=== PATIENT | female | born 1930 | race Caucasian/White ===

== ENCOUNTER 2016-11-13 20:37 | Inpatient (IN) | payer MEDICARE ==
[2016-11-13] MEDS ORDERED: SODIUM CHLORIDE 0.9% 500 ML IV STA (21:11)
--- NOTE | 2016-11-13 21:28 | ED ---
Skin/Abscess/FB HPI - General Source: patient, RN notes reviewed Mode of arrival: wheelchair Limitations: no limitations <Christine Mario - Last Filed: 11/13/16 22:30> <Walter Dos Santos - Last Filed: 11/13/16 23:11> - General Chief complaint: Skin/Abscess/Foreign Body Stated complaint: foot infection Time Seen by Provider: 11/13/16 21:00 - History of Present Illness Initial comments: 86 yo female presents to the ER with cc of left foot redness. Patient states that this redness started about a week ago. Patient states that [facility] of gout which was negative. Patient states that she was on Bactrim at that time. Patient states the redness has stayed about the same she went for a repeat exam today and she saw Dr. Albarran. They switch her to Keflex. They state they kourtney up lying on the area of redness and they stated that if the redness got past the line to come to the emergency department. They state that they noticed that it was getting more red close to the line without that they should be seen. There is been no fever chills no nausea or vomiting. Patient denies any significant health history besides high blood pressure. They stated they were concerned due to the redness without that they should be evaluated. Patient denies any recent fever, chills, shortness of breath, chest pain, back pain, abdominal pain, nausea vomiting, numbness or tingling, dysuria or hematuria, constipation or diarrhea, headaches or visual changes, or any other current symptoms. (Christine Mraio) - Related Data Home Medications Medication Instructions Recorded Confirmed Hydrochlorothiazide [Hydrodiuril] 25 mg PO DAILY 02/29/16 02/29/16 Hydrocodone/Acetaminophen [[place]igeon 1 tab PO Q4HR PRN 02/29/16 02/29/16 5-325] Metoprolol Tartrate [Lopressor] 50 mg PO BID 02/29/16 02/29/16 amLODIPine BESYLATE/BENAZEPRIL 1 cap PO DAILY 02/29/16 02/29/16 [Lotrel 5-20 mg Capsule] Allergies Allergy/AdvReac Type Severity Reaction Status Date / Time clindamycin Allergy Diarrhea Verified 11/13/16 21:00 codeine AdvReac Unknown Verified 11/13/16 21:00 Penicillins AdvReac Unknown Verified 11/13/16 21:00 Review of Systems ROS Other: All systems not noted in ROS Statement are negative. <Christine Mario - Last Filed: 11/13/16 22:30> ROS Other: All systems not noted in ROS Statement are negative. <Walter Dos Santos - Last Filed: 11/13/16 23:11> ROS Statement: Those systems with pertinent positive or pertinent negative responses have been documented in the HPI. Past Medical History Past Medical History: Hypertension History of Any Multi-Drug Resistant Organisms: None Reported Past Surgical History: Appendectomy, Hysterectomy Past Psychological History: No Psychological Hx Reported Smoking Status: Never smoker Past Alcohol Use History: None Reported Past Drug Use History: None Reported <Christine Mario - Last Filed: 11/13/16 22:30> General Exam Limitations: no limitations <Christine Mario - Last Filed: 11/13/16 22:30> General appearance: alert, in no apparent distress Head exam: Present: atraumatic, normocephalic, normal inspection Eye exam: Present: normal appearance, PERRL, EOMI. Absent: scleral icterus, conjunctival injection, periorbital swelling ENT exam: Present: normal exam, mucous membranes moist Neck exam: Present: normal inspection. Absent: tenderness, meningismus, lymphadenopathy Respiratory exam: Present: normal lung sounds bilaterally. Absent: respiratory distress, wheezes, rales, rhonchi, stridor Cardiovascular Exam: Present: regular rate, normal rhythm, normal heart sounds. Absent: systolic murmur, diastolic murmur, rubs, gallop, clicks GI/Abdominal exam: Present: soft, normal bowel sounds. Absent: distended, tenderness, guarding, rebound, rigid Extremities exam: Present: normal inspection, full ROM, normal capillary refill. Absent: tenderness, pedal edema, joint swelling, calf tenderness Back exam: Present: normal inspection Neurological exam: Present: alert, oriented X3, CN II-XII intact Psychiatric exam: Present: normal affect, normal mood Skin exam: Present: warm, dry, intact, normal color. Absent: rash <Walter Dos Santos - Last Filed: 11/13/16 23:11> - General Exam Comments Initial Comments: General: The patient is awake and alert, in no distress, and does not appear acutely ill. Neck: The neck is supple, there is no tenderness. Cardiovascular: There is a regular rate and rhythm. No murmur, rub or gallop is appreciated. Respiratory: Lungs are clear to auscultation, respirations are non-labored, breath sounds are equal. No wheezes, stridor, rales, or rhonchi. Musculoskeletal: Sensation to have a 2+ pulses at the left foot x-ray. Findings motion of left knee left ankle and left foot. It is piercing the erythema with induration to the distal aspect of the left foot to about mid foot. It is. A PA penlight patient has no erythematous passing the midline. There is no streaking. There is no fluctuant area. Neurological: CN II-XII intact, There are no obvious motor or sensory deficits. Coordination appears grossly intact. Speech is normal. Skin: Skin is warm and dry and no rashes or lesions are noted. Psychiatric: Normal mood and affect. (Christine Mario) Medical Decision Making - Lab Data Result diagrams: 11/13/16 21:25 11/13/16 21:25 - Radiology Data Radiology results: report reviewed, image reviewed <Christine Mario - Last Filed: 11/13/16 22:30> - Lab Data Result diagrams: 11/13/16 21:25 11/13/16 21:25 <Walter Dos Santos - Last Filed: 11/13/16 23:11> - Medical Decision Making 86-year-old female presents to the emergency room chief complaint of what appears to be cellulitis to the left forefoot. Patient has been on Bactrim since Wednesday and was switched to Keflex starting today. Patient states that she now some increasing redness that does have underlying. Patient underwent laboratory showed no white blood cell count however she does appear to have no a creatinine of 1.6 which could be related to the Bactrim but other causes as well. Patient denies any history of abnormal kidney function in the past. Patient states that she called Ortho and the informed to come here for IV antibiotics and possible ID consult. This time the case was discussed with Dr. Lomeli who does admit to the admission. We will consult Dr. Smith who is on- call for [facility] at this time. We will hold consult request to [facility]. Family in agreement with plan. (Christine Mario) A 86 female here for evaluation of lower extremity cellulitis seen by orthoepist and progressing proximally disoriented back therapy, patient will be admitted for IV antibiotic treatment and reevaluation by orthopedics (Walter Dos Santos) - Lab Data Lab Results 11/13/16 11/13/16 11/13/16 Range/Units 21:25 21:25 21:25 WBC 8.2 (3.8-10.6) k/uL RBC 4.23 (3.80-5.40) m/uL Hgb 12.5 (11.4-16.0) gm/dL Hct 38.5 (34.0-46.0) % MCV 90.9 (80.0-100.0) fL MCH 29.5 (25.0-35.0) pg MCHC 32.4 (31.0-37.0) g/dL RDW 12.6 (11.5-15.5) % Plt Count 289 (150-450) k/uL Neutrophils % 74 % Lymphocytes % 14 % Monocytes % 8 % Eosinophils % 1 % Basophils % 0 % Neutrophils # 6.1 (1.3-7.7) k/uL Lymphocytes # 1.1 (1.0-4.8) k/uL Monocytes # 0.7 (0-1.0) k/uL Eosinophils # 0.1 (0-0.7) k/uL Basophils # 0.0 (0-0.2) k/uL ESR (0-20) mm/hr Sodium 132 L (137-145) mmol/L Potassium 3.6 (3.5-5.1) mmol/L Chloride 94 L (98-107) mmol/L Carbon Dioxide 22 (22-30) mmol/L Anion Gap 16 mmol/L BUN 26 H (7-17) mg/dL Creatinine 1.62 H (0.52-1.04) mg/dL Est GFR (MDRD) Af Amer 37 (>60 ml/min/1.73 sqM) Est GFR (MDRD) Non-Af 30 (>60 ml/min/1.73 sqM) Glucose 106 H (74-99) mg/dL Calcium 10.0 (8.4-10.2) mg/dL Total Bilirubin 0.6 (0.2-1.3) mg/dL AST 24 (14-36) U/L ALT 21 (9-52) U/L Alkaline Phosphatase 75 (38-126) U/L C-Reactive Protein 33.6 H (<10.0) mg/L Total Protein 7.9 (6.3-8.2) g/dL Albumin 4.5 (3.5-5.0) g/dL 11/13/16 Range/Units 21:25 WBC (3.8-10.6) k/uL RBC (3.80-5.40) m/uL Hgb (11.4-16.0) gm/dL Hct (34.0-46.0) % MCV (80.0-100.0) fL MCH (25.0-35.0) pg MCHC (31.0-37.0) g/dL RDW (11.5-15.5) % Plt Count (150-450) k/uL Neutrophils % % Lymphocytes % % Monocytes % % Eosinophils % % Basophils % % Neutrophils # (1.3-7.7) k/uL Lymphocytes # (1.0-4.8) k/uL Monocytes # (0-1.0) k/uL Eosinophils # (0-0.7) k/uL Basophils # (0-0.2) k/uL ESR 41 H (0-20) mm/hr Sodium (137-145) mmol/L Potassium (3.5-5.1) mmol/L Chloride (98-107) mmol/L Carbon Dioxide (22-30) mmol/L Anion Gap mmol/L BUN (7-17) mg/dL Creatinine (0.52-1.04) mg/dL Est GFR (MDRD) Af Amer (>60 ml/min/1.73 sqM) Est GFR (MDRD) Non-Af (>60 ml/min/1.73 sqM) Glucose (74-99) mg/dL Calcium (8.4-10.2) mg/dL Total Bilirubin (0.2-1.3) mg/dL AST (14-36) U/L ALT (9-52) U/L Alkaline Phosphatase (38-126) U/L C-Reactive Protein (<10.0) mg/L Total Protein (6.3-8.2) g/dL Albumin (3.5-5.0) g/dL Disposition Time of Disposition: 22:31 Decision Date: 11/13/16 Decision Time: 22:32 <Christine Mario - Last Filed: 11/13/16 22:30> <Walter Dos Santos - Last Filed: 11/13/16 23:11> Clinical Impression: BENJAMIN (acute kidney injury), Cellulitis of left foot, Failure of outpatient treatment Disposition: ADMITTED IP TO THIS [facility] Condition: Stable Referrals: Maco El MD [Primary Care Provider] - 1-2 days
--- NOTE | 2016-11-13 21:44 | XR ---
EXAMINATION TYPE: XR foot complete LT DATE OF EXAM: 11/13/2016 9:39 PM COMPARISON: NONE HISTORY: Foot pain and swelling TECHNIQUE: 3 views FINDINGS: There is mild hallux valgus. There is mild soft tissue swelling around the first MP joint. I see no fracture nor dislocation. Metatarsals appear intact. There are no erosions. CONCLUSION: Mild hallux valgus. Mild soft tissue swelling. No fracture seen.
[2016-11-13 21:46] LABS: Basophils % (A) 0 %; CH 30.8; Eosinophils # (A) 0.1 k/uL (0-0.7); Eosinophils % (A) 1 %; HCT 38.5 % (34.0-46.0); HDW 2.13; HGB 12.5 gm/dL (11.4-16.0); Luc # (Auto) 0.23; Luc % (Auto) 3; Lymphocytes # (A) 1.1 k/uL (1.0-4.8); Lymphocytes % (A) 14 %; MCH 29.5 pg (25.0-35.0); MCHC 32.4 g/dL (31.0-37.0); MCV 90.9 fL (80.0-100.0); Mean Platelet Volume 7.2; Monocytes # (A) 0.7 k/uL (0-1.0); Monocytes % (A) 8 %; Neutrophils # (A) 6.1 k/uL (1.3-7.7); Neutrophils % (A) 74 %; RBC 4.23 m/uL (3.80-5.40); RDW 12.6 % (11.5-15.5); WBC 8.2 k/uL (3.8-10.6); WBC (Perox) 8.53
[2016-11-13 22:01] LABS: Potassium 3.6 mmol/L (3.5-5.1); Total Bilirubin 0.6 mg/dL (0.2-1.3); Total Protein 7.9 g/dL (6.3-8.2)
[2016-11-13] MEDS ORDERED: ONDANSETRON 4 MG/2 ML VIAL IVP PRN (22:32)
[2016-11-13] MEDS ORDERED: NALOXONE 0.4 MG/ML 1 ML VIAL IV PRN (22:32)
[2016-11-13] MEDS ORDERED: IV VANCOMYCIN PER PHARMACY 1 EACH MISC MISCELLANE PRN (22:36)
[2016-11-13] MEDS ORDERED: VANCOMYCIN 1,000 MG in SODIUM CHLORIDE 0.9% 250 ML IVPB STA (22:41)
[2016-11-13] MEDS ORDERED: LORazepam 2 MG/ML SYRINGE IV STA (23:44)
[2016-11-14] MEDS: SODIUM CHLORIDE 0.9% 1,000 ML IV SCH ×3 (00:01→12:53)
[2016-11-14 00:45] VITALS: BMI 26.4
[2016-11-14 08:00] LABS: Basophils % (A) 0 %; CH 30.5; Eosinophils # (A) 0.1 k/uL (0-0.7); Eosinophils % (A) 2 %; HCT 34.5 % (34.0-46.0); HDW 2.13; HGB 11.2 gm/dL (11.4-16.0); Luc # (Auto) 0.18; Luc % (Auto) 3; Lymphocytes # (A) 0.9 k/uL (1.0-4.8); Lymphocytes % (A) 14 %; MCHC 32.3 g/dL (31.0-37.0); MCV 92.9 fL (80.0-100.0); Mean Platelet Volume 7.4; Monocytes # (A) 0.4 k/uL (0-1.0); Monocytes % (A) 7 %; Neutrophils # (A) 4.6 k/uL (1.3-7.7); Neutrophils % (A) 74 %; RBC 3.71 m/uL (3.80-5.40); RDW 12.9 % (11.5-15.5); WBC 6.2 k/uL (3.8-10.6); WBC (Perox) 6.57
[2016-11-14 08:16] LABS: Calcium 9.2 mg/dL (8.4-10.2); Potassium 3.7 mmol/L (3.5-5.1); Total Bilirubin 0.6 mg/dL (0.2-1.3); Total Protein 6.7 g/dL (6.3-8.2)
[2016-11-14] MEDS: HYDROcodone/APAP 5-325MG 1 EACH TAB PO PRN (08:38)
--- NOTE | 2016-11-14 09:08 | P.CNOR ---
History of Present Illness - [facility] Consult date: 11/14/16 Requesting physician: Sam Albarran Consult reason: joint pain History of present illness: Patient is pleasant 86-year-old female seen at bedside this morning. She is admitted last evening to the ER for continued pain, swelling or redness of the left foot and toes. She had seen Dr. Albarran in the office earlier that day and had been on oral antibiotics. She did not shown improvement and thus was advised to present to the emergency department. She was admitted last evening and started on IV antibiotics, vancomycin, which she has tolerated well. She feels her pain and symptoms are improved today. She has no new complaints. She is denying fever, chills, calf pain, numbness, tingling, chest pain, cough or other Review of Systems All systems: negative Constitutional: Denies chills, Denies fever Eyes: denies blurred vision, denies pain Ears, nose, mouth and throat: Denies headache, Denies sore throat Cardiovascular: Denies chest pain, Denies shortness of breath Respiratory: Denies cough Gastrointestinal: Denies abdominal pain, Denies diarrhea, Denies nausea, Denies vomiting Genitourinary: Denies dysuria, Denies hematuria Musculoskeletal: Denies myalgias Integumentary: Denies pruritus, Denies rash Neurological: Denies numbness, Denies weakness Psychiatric: Denies anxiety, Denies depression Endocrine: Denies fatigue, Denies weight change Past Medical History Past Medical History: Fibromyalgia, Hypertension Additional Past Medical History / Comment(s): Aortic Aneurysm, Macular degeneration History of Any Multi-Drug Resistant Organisms: None Reported Past Surgical History: Appendectomy, Hysterectomy Past Anesthesia/Blood Transfusion Reactions: No Reported Reaction Past Psychological History: No Psychological Hx Reported Smoking Status: Never smoker Past Alcohol Use History: None Reported Past Drug Use History: None Reported - Past Family History Mother Additional Family Medical History / Comment(s): bowel obstruction Medications and Allergies Home Medications Medication Instructions Recorded Confirmed Type Hydrochlorothiazide [Hydrodiuril] 25 mg PO DAILY 02/29/16 11/14/16 History Hydrocodone/Acetaminophen [[place]eler 1 tab PO Q4HR PRN 02/29/16 11/14/16 History 5-325] Metoprolol Tartrate [Lopressor] 50 mg PO BID 02/29/16 11/14/16 History amLODIPine BESYLATE/BENAZEPRIL 1 cap PO DAILY 02/29/16 11/14/16 History [Lotrel 5-20 mg Capsule] Allergies Allergy/AdvReac Type Severity Reaction Status Date / Time clindamycin Allergy Diarrhea Verified 11/13/16 21:00 codeine AdvReac Unknown Verified 11/13/16 21:00 Penicillins AdvReac Unknown Verified 11/13/16 21:00 Physical Examination Inspection of the left foot reveals resolving erythema distally along the greater toe and second through fifth digits. There is demarcation with a marking pen where the erythema has receded from. The foot and toes are mildly warm to touch. She has painless active range of motion including dorsiflexion and plantarflexion of the foot and toes. Endpoint range of motion is limited due to pain particularly along the greater toe. There is no fluid collection, abscess or fluctuance. Sensation light touch is intact throughout the left lower extremity, foot and toes. 2+ dorsalis pedis pulses present and less than 2 second cap refill is present. Calf is soft and nontender. Results - Labs Labs: Abnormal Lab Results - Last 24 Hours (Table) 11/14/16 11/14/16 Range/Units 07:38 07:38 RBC 3.71 L (3.80-5.40) m/uL Hgb 11.2 L (11.4-16.0) gm/dL Lymphocytes # 0.9 L (1.0-4.8) k/uL BUN 18 H (7-17) mg/dL Creatinine 1.11 H (0.52-1.04) mg/dL H & H 11/14/16 Range/Units 07:38 Hgb 11.2 L (11.4-16.0) gm/dL Hct 34.5 (34.0-46.0) % Result Diagrams: 11/14/16 07:38 11/14/16 07:38 Assessment and Plan (1) Cellulitis of left foot Narrative/Plan: She will continue with routine orthopedic protocol including pain management, wound care, DVT prophylaxis and antibiotics per internal medicine which she is currently on IV vancomycin. Suspect the differential includes cellulitis versus acute gouty attack. She has a normal white count and is afebrile. She had an aspiration which results were apparently negative for infectious intra- articular process. Continue elevation and monitoring. We'll follow and make further recommendations as appropriate Status: Acute Time with Patient: Less than 30
[2016-11-14] MEDS ORDERED: AMLODIPINE BESYLATE PO SCH (12:00)
[2016-11-14] MEDS ORDERED: BENAZEPRIL PO SCH (12:00)
--- NOTE | 2016-11-14 12:04 | P.HPIM ---
History of Present Illness H&P Date: 11/14/16 Chief Complaint: Cellulitis left foot This is an 86-year-old female patient of Dr. Maco El with past medical history of hypertension, aortic aneurysm which is being monitored, diverticulosis, fibromyalgia, osteoporosis. Patient developed redness to the left foot with no known injury and follow-up with Dr. Albarran. She states she was originally placed on Bactrim which causes diarrhea and yesterday she was changed to Keflex but she continued to have pain to the foot as well as swelling and redness and Dr. [facility]ran [facility] and [facility] emergency center for evaluation. She was given a dose of ceftriaxone and vancomycin and admitted to the [facility] floor. She did have significant improvement of the redness and swelling after IV antibiotics. Patient's niece is at the bedside. Patient was also noted to have acute kidney injury. Patient also gives a history of a foaming sensation and feeling like things are stuck in her esophagus. Review of Systems All systems: negative Constitutional: Denies chills, Denies fever Eyes: denies blurred vision, denies pain Ears, nose, mouth and throat: Denies headache, Denies sore throat Cardiovascular: Denies chest pain, Denies shortness of breath Respiratory: Denies cough Gastrointestinal: Denies abdominal pain, Denies diarrhea, Denies nausea, Denies vomiting Genitourinary: Denies dysuria, Denies hematuria Musculoskeletal: Denies myalgias Integumentary: Reports darkening of skin, Denies pruritus, Denies rash Neurological: Denies numbness, Denies weakness Psychiatric: Denies anxiety, Denies depression Endocrine: Denies fatigue, Denies weight change Past Medical History Past Medical History: Fibromyalgia, Hypertension Additional Past Medical History / Comment(s): Aortic Aneurysm, Macular cyst status post surgery History of Any Multi-Drug Resistant Organisms: None Reported Past Surgical History: Appendectomy, Hysterectomy Additional Past Surgical History / Comment(s): Right bunionectomy, left eye macular cyst removal Past Anesthesia/Blood Transfusion Reactions: No Reported Reaction Past Psychological History: No Psychological Hx Reported Smoking Status: Never smoker Past Alcohol Use History: None Reported Additional Past Alcohol Use History / Comment(s): Patient is a lifelong nonsmoker. She denies any medical marijuana, marijuana, street drug or alcohol use. She is single is never been . She has worked in the past at the [employer]. Past Drug Use History: None Reported - Past Family History Mother Additional Family Medical History / Comment(s): Mother at age 75 from hemorrhage or brain aneurysm with history of colon cancer status post colostomy. Father Additional Family Medical History / Comment(s): Father at age 69 with history of kidney stones. Sister(s) Additional Family Medical History / Comment(s): Patient has one sisterliving with history of CVA Brother(s) Additional Family Medical History / Comment(s): Patient has 2 brothers and one from pneumonia and one from TIA and strokes. Medications and Allergies Home Medications Medication Instructions Recorded Confirmed Type Hydrochlorothiazide [Hydrodiuril] 25 mg PO DAILY 02/29/16 11/14/16 History Hydrocodone/Acetaminophen [[place]vona 1 tab PO Q4HR PRN 02/29/16 11/14/16 History 5-325] Metoprolol Tartrate [Lopressor] 50 mg PO BID 02/29/16 11/14/16 History amLODIPine BESYLATE/BENAZEPRIL 1 cap PO DAILY 02/29/16 11/14/16 History [Lotrel 5-20 mg Capsule] Allergies Allergy/AdvReac Type Severity Reaction Status Date / Time clindamycin Allergy Diarrhea Verified 11/13/16 21:00 codeine AdvReac Unknown Verified 11/13/16 21:00 Penicillins AdvReac Unknown Verified 11/13/16 21:00 Physical Exam Vitals: Vital Signs Temp Pulse Pulse Resp BP BP Pulse Ox 11/14/16 07:00 97.2 F L 65 18 116/58 98 11/14/16 00:55 97.3 F L 62 20 116/58 98 11/13/16 23:48 98.9 F 60 18 114/68 95 Intake and Output 11/13/16 11/14/16 11/14/16 22:59 06:59 14:59 Intake Total 100 Balance 100 Intake: Oral 100 Other: # Voids 2 1 Weight 59.5 kg Gen: This is an 86-year-old female. She is sitting up in bed and appears to be in no acute distress. HEENT: Head is atraumatic, normocephalic. Pupils equal, round. Sclerae is anicteric. NECK: Supple. No JVD. No lymphadenopathy. No thyromegaly. LUNGS: Clear to auscultation. No wheezes or rhonchi. No intercostal retractions. HEART: Regular rate and rhythm. No murmur. ABDOMEN: Soft. Bowel sounds are present. No masses. No tenderness. EXTREMITIES: No pedal edema. No calf tenderness. Mild erythema and edema to the dorsal surface of the left foot. No open wounds, drainage noted calluses noted bilaterally to the plantar surface. NEUROLOGICAL: Patient is awake, alert and oriented x3. Cranial nerves 2 through 12 are grossly intact. Results CBC & Chem 7: 11/14/16 07:38 11/14/16 07:38 Labs: Abnormal Lab Results - Last 24 Hours (Table) 11/14/16 11/14/16 Range/Units 07:38 07:38 RBC 3.71 L (3.80-5.40) m/uL Hgb 11.2 L (11.4-16.0) gm/dL Lymphocytes # 0.9 L (1.0-4.8) k/uL BUN 18 H (7-17) mg/dL Creatinine 1.11 H (0.52-1.04) mg/dL Thrombosis Risk Factor Assmnt - DVT/VTE Prophylaxis DVT/VTE Prophylaxis: Pharmacologic Prophylaxis ordered - Choose All That Apply Any of the Below Risk Factors Present?: No Assessment and Plan Plan: 1. Acute cellulitis of the left foot failed outpatient treatment. Patient will continue vancomycin and ceftriaxone. Local wound care with Silvadene. 2. Hypertension. Continue metoprolol tartrate 50 mg twice daily and Lotrel. Hydrochlorothiazide will be placed on hold. 3. Acute kidney injury. Hydrochlorothiazide placed on hold. IV fluids changed to 50 mL per hour. 4. History of fibromyalgia, stable. 5. History of aortic aneurysm being monitored as an outpatient, stable. 6. Osteoporosis, stable. 7. Sensation of food being stuck in esophagus. Patient to follow-up with GI for EGD as an outpatient. Patient will be admitted to the hospital for a minimum of 2 night stay. Discharge plan: Return home Impression and plan of care have been directed as dictated by the signing physician. Sierra Vargas nurse practitioner acting as scribe for signing physician. Time with Patient: Greater than 30
[2016-11-14] MEDS: LISINOPRIL 20 MG TAB PO SCH (12:52)
[2016-11-14] MEDS: amLODIPine 5 MG TAB PO SCH (12:53)
[2016-11-14] MEDS: METOPROLOL TARTRATE 50 MG TAB PO SCH ×2 (12:53→21:34)
--- NOTE | 2016-11-14 13:34 | P.PN ---
Subjective Patient is doing well and is significantly improved on IV antibiotics. She says the redness and swelling in her foot has improved. She denies fevers or chills. Objective - Vital Signs Vital signs: Vital Signs Temp 97.2 F L 11/14/16 07:00 Pulse 65 11/14/16 07:00 Resp 18 11/14/16 07:00 BP 116/58 11/14/16 07:00 Pulse Ox 98 11/14/16 07:00 Intake & Output 11/13/16 11/14/16 11/14/16 18:59 06:59 18:59 Intake Total 100 Balance 100 Weight 59.5 kg Intake: Oral 100 Other: # Voids 2 1 - Exam Examination of the foot there is improved erythema and swelling since my examination on Wednesday in the office. There are no open wounds or areas of drainage. There is no crepitance or areas of fluctuance. There is no pain with passive range of motion of the toes. - Labs CBC & Chem 7: 11/14/16 07:38 11/14/16 07:38 Labs: Abnormal Lab Results - Last 24 Hours (Table) 11/14/16 11/14/16 Range/Units 07:38 07:38 RBC 3.71 L (3.80-5.40) m/uL Hgb 11.2 L (11.4-16.0) gm/dL Lymphocytes # 0.9 L (1.0-4.8) k/uL BUN 18 H (7-17) mg/dL Creatinine 1.11 H (0.52-1.04) mg/dL Assessment and Plan (1) Cellulitis of left foot Status: Acute Plan: The patient is a very pleasant 86-year-old female I have been seeing in the office over the last week. She initially presented with an acutely swollen and erythematous foot. Most of her swelling was about the first MTP joint, so an aspiration was performed to rule out gout as a cause of her acute redness and swelling. The fluid was sent for cultures and crystal analysis both of which were negative. The patient was started on Bactrim. She developed diarrhea after several days and was again seen in the office yesterday. She continued to have erythema and swelling in her foot with no improvement, but also was not worse. We discussed both continued outpatient treatment with oral antibiotics versus admitting her from the office. The patient and her nephew decided that they wanted to continue oral antibiotics. We discussed that if her symptoms worsened over the weekend she was to call the answering service. Last night the patient's daughters were concerned that the redness was worse so she called the answering service and was directed to the ER. She was admitted to internal medicine and started on IV antibiotics. This morning she looks significantly better after initiation of IV antibiotics. I see no need for advanced imaging to rule out deep space infection. We'll defer to internal medicine or infectious disease regarding duration of IV antibiotics in the hospital and choice of antibiotic and route of administration following discharge. We will closely follow while she is in the hospital.
[2016-11-14] MEDS ORDERED: MELATONIN 5 MG TABLET PO SCH (21:00)
[2016-11-15] MEDS: HYDROcodone/APAP 5-325MG 1 EACH TAB PO PRN ×2 (01:31→11:11)
[2016-11-15] MEDS: SODIUM CHLORIDE 0.9% 1,000 ML IV SCH ×2 (01:46→10:16)
[2016-11-15] MEDS ORDERED: VANCOMYCIN 1,000 MG in SODIUM CHLORIDE 0.9% 250 ML IVPB SCH (06:00)
[2016-11-15 08:05] VITALS: BP 117/62; PULSE 85; RESP 16; TEMP 96
[2016-11-15 09:12] LABS: CH 30.5; CHCM 32.7; HCT 32.5 % (34.0-46.0); HDW 2.21; HGB 10.6 gm/dL (11.4-16.0); MCH 30.5 pg (25.0-35.0); MCHC 32.5 g/dL (31.0-37.0); MCV 93.7 fL (80.0-100.0); Mean Platelet Volume 8.1; RBC 3.47 m/uL (3.80-5.40); RDW 12.7 % (11.5-15.5); WBC 4.8 k/uL (3.8-10.6)
[2016-11-15 09:25] LABS: Anion Gap 9 mmol/L; Blood Urea Nitrogen 14 mg/dL (7-17); Calcium 9.2 mg/dL (8.4-10.2); Carbon Dioxide 26 mmol/L (22-30); Chloride 105 mmol/L (98-107); Glucose 98 mg/dL (74-99); Non-African American GFR(MDRD) >60 (>60 ml/min/1.73 sqM); Potassium 3.6 mmol/L (3.5-5.1); Sodium 140 mmol/L (137-145)
--- NOTE | 2016-11-15 10:08 | P.PN ---
Subjective Principal diagnosis: Left foot cellulitis Patient seen at bedside today. He was admitted for left foot cellulitis, pain and possible gout attack. She has been on IV antibiotics. Her pain and symptoms of mostly resolved over the past 2 days. She has no new complaints today. She has minimal to no pain. She is denying fever, chills, chest pain, shortness of breath, numbness, tingling, calf pain or other. Objective - Vital Signs Vital signs: Vital Signs Temp 96.0 F L 11/15/16 07:00 Pulse 85 11/15/16 07:00 Resp 16 11/15/16 07:00 BP 117/62 11/15/16 07:00 Pulse Ox 97 11/15/16 07:00 Intake & Output 11/14/16 11/15/16 11/15/16 17:59 06:59 18:59 Intake Total Balance Intake: IV Sodium Chloride 0.9% 1, 000 ml @ 50 mls/hr IV . Q20H JENNIFER Rx#:[id number] cefTRIAXone 1,000 mg In Sodium Chloride 0.9% 50 ml @ 100 mls/hr IVPB ONCE STA Rx#:[id number] Oral Other: # Voids # Bowel Movements - Exam Inspection of the left lower extremity and foot reveals resolved erythema. There is minimal to no pain to palpation throughout the foot and MTP joints. The foot and toes are not excessively warm to touch. Sensation is intact throughout. She is able to plantarflex and dorsiflex the ankle, foot and toes. 2+ dorsalis pedis pulses present and less than 2 second cap refill is present. - Constitutional General appearance: Present: no acute distress - Psychiatric Psychiatric: Present: A&O x's 3, appropriate affect, intact judgment & insight - Labs CBC & Chem 7: 11/15/16 08:24 11/15/16 08:24 Labs: Abnormal Lab Results - Last 24 Hours (Table) 11/15/16 Range/Units 08:24 RBC 3.47 L (3.80-5.40) m/uL Hgb 10.6 L (11.4-16.0) gm/dL Hct 32.5 L (34.0-46.0) % Assessment and Plan (1) Cellulitis of left foot Narrative/Plan: Her signs and symptoms regarding her left foot pain, erythema and swelling have essentially resolved. She has no new complaints. She may be discharged from an orthopedic standpoint. Appreciate internal medicine's management and assistance. Discharge medications per internal medicine. She is to follow-up with Dr. Albarran in office 11/17/2016. Status: Acute Time with Patient: Less than 30
[2016-11-15] MEDS: amLODIPine 5 MG TAB PO SCH (10:17)
[2016-11-15] MEDS: METOPROLOL TARTRATE 50 MG TAB PO SCH (10:17)
[2016-11-15] MEDS: LISINOPRIL 20 MG TAB PO SCH (10:18)
--- NOTE | 2016-11-15 10:25 | P.DS ---
Providers Date of admission: 11/13/16 23:12 Expected date of discharge: 11/15/16 Attending physician: Doug Lomeli Primary care physician: Maco El [facility] Course: This is an 86-year-old female patient of Dr. Maco El with past medical history of hypertension, aortic aneurysm which is being monitored, diverticulosis, fibromyalgia, osteoporosis. Patient developed redness to the left foot with no known injury and follow-up with Dr. Albarran. She states she was originally placed on Bactrim which causes diarrhea and yesterday she was changed to Keflex but she continued to have pain to the foot as well as swelling and redness and Dr. Albarran [facility] emergency center for evaluation. She was given a dose of ceftriaxone and vancomycin and admitted to the [facility] floor. She did have significant improvement of the redness and swelling after IV antibiotics. Patient's niece is at the bedside. Patient was also noted to have acute kidney injury. Patient also gives a history of a foaming sensation and feeling like things are stuck in her esophagus. 11/15: Redness and swelling to the left dorsal foot is significantly improved from yesterday. Patient will be discharged home and continue on Keflex. Patient instructed to take probiotic or yogurt while on antibiotic. Silvadene to be continued at home. Patient will be discharged home in stable condition. Discharge diagnoses: 1. Acute cellulitis of the left foot failed outpatient treatment. 2. Hypertension. 3. Acute kidney injury. 4. History of fibromyalgia, stable. 5. History of aortic aneurysm being monitored as an outpatient, stable. 6. Osteoporosis, stable. 7. Sensation of food being stuck in esophagus. Patient to follow-up with GI for EGD as an outpatient. Impression and plan of care have been directed as dictated by the signing physician. Sierra Vargas nurse practitioner acting as scribe for signing physician. CC: Dr. Maco El Patient Condition at Discharge: Good Plan - Discharge Summary New Discharge Prescriptions: SILVER sulfADIAZINE CREAM [Silvadene Cream] 1 applic TOPICAL BID #20 gm Discharge Medication List Hydrochlorothiazide [Hydrodiuril] 25 mg PO DAILY 02/29/16 [History] Hydrocodone/Acetaminophen [[place] 5-325] 1 tab PO Q4HR PRN 02/29/16 [History] Metoprolol Tartrate [Lopressor] 50 mg PO BID 02/29/16 [History] amLODIPine BESYLATE/BENAZEPRIL [Lotrel 5-20 mg Capsule] 1 cap PO DAILY 02/29/16 [History] Cephalexin [Keflex] 500 mg PO Q12HR 11/14/16 [History] Cholecalciferol [Vitamin D3] 1,000 unit PO DAILY 11/14/16 [History] Folic Acid 0.4 mg PO DAILY 11/14/16 [History] Melatonin 5 mg PO HS tablet 11/15/16 [Rx] SILVER sulfADIAZINE CREAM [Silvadene Cream] 1 applic TOPICAL BID #20 gm [Rx] Follow up Appointment(s)/Referral(s): Maco El MD [Primary Care Provider] - 1 Week Sam Albarran MD [Medical Doctor] - 1 Week Activity/Diet/Wound Care/Special Instructions: Take probiotic twice daily or yogurt while on antibiotics.
[2016-11-16] MEDS ORDERED: VANCOMYCIN 1,000 MG in SODIUM CHLORIDE 0.9% 250 ML IVPB SCH (06:00)
== END 2016-11-15 12:16 | disposition home or self-care (01) | DRG 603 ==
LOC: EC 20:37 → SUPCPDRO 20:37 → 4MS4W 23:12
PROVIDERS: ADMIT Internal Medicine Geriatric Medicine; ATTEND Internal Medicine Geriatric Medicine
DX: L03.116 Cellulitis of left lower limb (principal); N17.9 Acute kidney failure, unspecified; I10 Essential (primary) hypertension; M79.7 Fibromyalgia; R13.19 Other dysphagia; M81.0 Age-related osteoporosis without current pathological fracture; I71.9 Aortic aneurysm of unspecified site, without rupture; M25.50 Pain in unspecified joint; H35.30 Unspecified macular degeneration; K57.90 Diverticulosis of intestine, part unspecified, without perforation or abscess without bleeding; Z88.0 Allergy status to penicillin; Z88.1 Allergy status to other antibiotic agents; Z88.5 Allergy status to narcotic agent; Z79.899 Other long term (current) drug therapy; Z82.3 Family history of stroke; Z79.891 Long term (current) use of opiate analgesic; Z80.0 Family history of malignant neoplasm of digestive organs; Z82.49 Family history of ischemic heart disease and other diseases of the circulatory system; Z90.49 Acquired absence of other specified parts of digestive tract; Z90.710 Acquired absence of both cervix and uterus
CPT/HCPCS: 36415; 80048; 80053; 85025; 85027; 85652; 86140; 87040; 96365; 96367; 96375; 99284

== ENCOUNTER 2016-11-24 16:55 | Emergency (ER) | payer MEDICARE ==
[2016-11-24 17:09] VITALS: BP 100/59; PULSE 90; RESP 18; TEMP 98
[2016-11-24] MEDS ORDERED: IBUPROFEN 600 MG TAB PO STA (17:52)
--- NOTE | 2016-11-24 17:54 | ED ---
General Adult HPI - General Chief complaint: Skin/Abscess/Foreign Body Stated complaint: Foot Infection - Fever Time Seen by Provider: 11/24/16 17:20 Source: patient, RN notes reviewed, old records reviewed Mode of arrival: wheelchair Limitations: no limitations - History of Present Illness Initial comments: This is an 86-year-old female year for evaluation of wound recheck. Patient has left-sided hallux arthritis, inflammation, erythema, recent history of significant foot cellulitis stemming from that area, patient also was Bunning on left great toe. Patient states she is concerned about on and off fever at home and she been taking her temperature and it is going up and down anywhere from 97-99. Patient denies any other significant complaints - Related Data Home Medications Medication Instructions Recorded Confirmed Hydrochlorothiazide [Hydrodiuril] 25 mg PO DAILY 02/29/16 11/24/16 Metoprolol Tartrate [Lopressor] 50 mg PO BID 02/29/16 11/24/16 Cephalexin [Keflex] 500 mg PO Q12HR 11/14/16 11/24/16 Cholecalciferol [Vitamin D3] 1,000 unit PO DAILY 11/14/16 11/24/16 Folic Acid 0.4 mg PO DAILY 11/14/16 11/24/16 HYDROcodone/APAP 5-325MG [[place] 5] 1 tab PO Q4H PRN 11/24/16 11/24/16 L.acidoph,Paracasei, B.lactis 1 cap PO DAILY 11/24/16 11/24/16 [Probiotic] SILVER sulfADIAZINE CREAM 1 applic TOPICAL BID 11/24/16 11/24/16 [Silvadene Cream] amLODIPine BESYLATE/BENAZEPRIL 1 cap PO DAILY 11/24/16 11/24/16 [Lotrel 5-20 mg Capsule] Previous Rx's Medication Instructions Recorded Melatonin 5 mg PO HS tablet 11/15/16 Naproxen [Naprosyn] 250 mg PO BID #30 tab 11/24/16 Allergies Allergy/AdvReac Type Severity Reaction Status Date / Time clindamycin Allergy Severe Anaphylaxis Verified 11/24/16 17:26 codeine AdvReac Unknown Verified 11/24/16 17:26 Penicillins AdvReac Unknown Verified 11/24/16 17:26 Review of Systems ROS Statement: Those systems with pertinent positive or pertinent negative responses have been documented in the HPI. ROS Other: All systems not noted in ROS Statement are negative. Past Medical History Past Medical History: Fibromyalgia, Hypertension Additional Past Medical History / Comment(s): Aortic Aneurysm, Macular cyst status post surgery History of Any Multi-Drug Resistant Organisms: None Reported Past Surgical History: Appendectomy, Hysterectomy Additional Past Surgical History / Comment(s): Right bunionectomy, left eye macular cyst removal Past Anesthesia/Blood Transfusion Reactions: No Reported Reaction Past Psychological History: No Psychological Hx Reported Smoking Status: Never smoker Past Alcohol Use History: None Reported Additional Past Alcohol Use History / Comment(s): Patient is a lifelong nonsmoker. She denies any medical marijuana, marijuana, street drug or alcohol use. She is single is never been . She has worked in the past at the [employer]. Past Drug Use History: None Reported - Past Family History Mother Additional Family Medical History / Comment(s): Mother at age 75 from hemorrhage or brain aneurysm with history of colon cancer status post colostomy. Father Additional Family Medical History / Comment(s): Father at age 69 with history of kidney stones. Sister(s) Additional Family Medical History / Comment(s): Patient has one sisterliving with history of CVA Brother(s) Additional Family Medical History / Comment(s): Patient has 2 brothers and one from pneumonia and one from TIA and strokes. General Exam Limitations: no limitations General appearance: alert, in no apparent distress Head exam: Present: atraumatic, normocephalic, normal inspection Eye exam: Present: normal appearance, PERRL, EOMI. Absent: scleral icterus, conjunctival injection, periorbital swelling ENT exam: Present: normal exam, mucous membranes moist Neck exam: Present: normal inspection. Absent: tenderness, meningismus, lymphadenopathy Respiratory exam: Present: normal lung sounds bilaterally. Absent: respiratory distress, wheezes, rales, rhonchi, stridor Cardiovascular Exam: Present: regular rate, normal rhythm, normal heart sounds. Absent: systolic murmur, diastolic murmur, rubs, gallop, clicks GI/Abdominal exam: Present: soft, normal bowel sounds. Absent: distended, tenderness, guarding, rebound, rigid Extremities exam: Present: normal inspection, full ROM, normal capillary refill , other (Great hallux and Bunning erythema). Absent: tenderness, pedal edema, joint swelling, calf tenderness Back exam: Present: normal inspection Neurological exam: Present: alert, oriented X3, CN II-XII intact Psychiatric exam: Present: normal affect, normal mood Skin exam: Present: warm, dry, intact, normal color. Absent: rash Course Vital Signs 11/24/16 17:06 Temperature 98 F Pulse Rate 90 Respiratory 18 Rate Blood Pressure 100/59 O2 Sat by Pulse 98 Oximetry - Reevaluation(s) Reevaluation #1: 11/24/16 17:52 Prior medical record is reviewed and prior pictures of foot are reviewed Medical Decision Making - Medical Decision Making 86 female the ER for evaluation of left great toe pain. Erythema, still improving, no fevers. Exam is documented and patient will follow up with primary care on as directed. She will continue antibiotics Disposition Clinical Impression: Cellulitis of left foot, Encounter for wound re-check Disposition: HOME SELF-CARE Condition: Good Instructions: Arthritis (ED) Referrals: Maco El MD [Primary Care Provider] - 1-2 days
== END 2016-11-24 18:06 | disposition home or self-care (01) ==
LOC: EC 16:55
DX: L03.116 Cellulitis of left lower limb (principal); Z48.00 Encounter for change or removal of nonsurgical wound dressing; M79.7 Fibromyalgia; I10 Essential (primary) hypertension; Z79.899 Other long term (current) drug therapy; Z88.0 Allergy status to penicillin; Z88.1 Allergy status to other antibiotic agents; Z88.5 Allergy status to narcotic agent
CPT/HCPCS: 99283

== ENCOUNTER → 2017-01-14 | Outpatient (CLI) | payer MEDICARE ==
--- NOTE | 2017-01-14 12:01 | US ---
EXAMINATION TYPE: US venous doppler duplex LE DATE OF EXAM: 01/14/2017 9:08 AM COMPARISON: NONE CLINICAL HISTORY: Foot Swelling M79.89. Left foot redness and swelling SIDE PERFORMED: Bilateral TECHNIQUE: The lower extremity deep venous system is examined utilizing real time linear array sonog kosta with graded compression, doppler sonography and color-flow sonography. VESSELS IMAGED: External Iliac Vein (EIV) Common Femoral Vein Deep Femoral Vein Greater Saphenous Vein * Femoral Vein Popliteal Vein Small Saphenous Vein * Proximal Calf Veins (* superficial vessels) Right Leg: Appears negative for DVT Left Leg: Appears negative for DVT IMPRESSION: Grayscale, color doppler, spectral doppler imaging performed of the deep veins of the lo wer extremities. There is normal flow, compressibility, vascular waveforms bilaterally. No evident deep venous thrombosis within the deep veins of the lower extremity as described.
--- NOTE | 2017-01-20 15:06 | P.ARTDOP ---
Arterial Doppler LOWER EXTREMITY ARTERIAL DOPPLER: DATE OF SERVICE: 01/14/2017 Reason for study: Foot redness. Doppler waveforms: Multiphasic bilaterally throughout. Pulse volume recording: Normal configuration. Pressure gradients: None. Ankle-brachial indices: 0.96 on the left and 0.97 on the right. Toe pressures: 102 on the right, 93 on the left Impression: Normal study.
== END | disposition home or self-care (01) ==
LOC: RADUSWWP 08:33
PROVIDERS: ATTEND Internal Medicine
DX: M79.89 Other specified soft tissue disorders (principal); I10 Essential (primary) hypertension
CPT/HCPCS: 93923; 93970

== ENCOUNTER 2018-04-24 07:54 | Emergency (ER) | payer MEDICARE ==
[2018-04-24 08:02] VITALS: RESP 18; TEMP 98.2
[2018-04-24] MEDS ORDERED: SODIUM CHLORIDE 0.9% 1,000 ML IV STA (08:26)
--- NOTE | 2018-04-24 08:31 | ED ---
Nausea/Vomiting/Diarrhea HPI - General Chief complaint: Nausea/Vomiting/Diarrhea Stated complaint: Diarrhea Time Seen by Provider: 04/24/18 08:05 Source: patient Mode of arrival: wheelchair Limitations: no limitations - History of Present Illness Initial comments: 88-year-old female patient presents the emergency department today with chief complaint of diarrhea. Patient states that she started to have loose stools on Wednesday. Patient states that Wednesday and her symptoms increased. States she is having up to 6 watery bowel movements per day. Patient states that she did have temperatures ranging from 99.6-99.8 over the course of last few days but that seems to have resolved. Patient denies any abdominal pain or cramping with the diarrhea. Denies any nausea or vomiting. States she has been able to eat and drink. Denies any recent travel, sick contacts, or new medications. Denies any antibiotic use in the last couple of months. Patient denies any recent rash, shortness breath, chest pain, back pain, numbness, tingling, dizziness, weakness, hematuria, dysuria, urinary urgency, urinary frequency, headache, visual changes, or any other complaints. - Related Data Home Medications Medication Instructions Recorded Confirmed Hydrochlorothiazide [Hydrodiuril] 25 mg PO DAILY 02/29/16 11/24/16 Metoprolol Tartrate [Lopressor] 50 mg PO BID 02/29/16 11/24/16 Cephalexin [Keflex] 500 mg PO Q12HR 11/14/16 11/24/16 Cholecalciferol [Vitamin D3] 1,000 unit PO DAILY 11/14/16 11/24/16 Folic Acid 0.4 mg PO DAILY 11/14/16 11/24/16 HYDROcodone/APAP 5-325MG [[place] 5] 1 tab PO Q4H PRN 11/24/16 11/24/16 L.acidoph,Paracasei, B.lactis 1 cap PO DAILY 11/24/16 11/24/16 [Probiotic] SILVER sulfADIAZINE CREAM 1 applic TOPICAL BID 11/24/16 11/24/16 [Silvadene Cream] amLODIPine BESYLATE/BENAZEPRIL 1 cap PO DAILY 11/24/16 11/24/16 [Lotrel 5-20 mg Capsule] Previous Rx's Medication Instructions Recorded Melatonin 5 mg PO HS tablet 11/15/16 Naproxen [Naprosyn] 250 mg PO BID #30 tab 11/24/16 Allergies Allergy/AdvReac Type Severity Reaction Status Date / Time clindamycin Allergy Severe Anaphylaxis Verified 04/24/18 08:02 codeine AdvReac Unknown Verified 04/24/18 08:02 Penicillins AdvReac Unknown Verified 04/24/18 08:02 Review of Systems ROS Statement: Those systems with pertinent positive or pertinent negative responses have been documented in the HPI. ROS Other: All systems not noted in ROS Statement are negative. Past Medical History Past Medical History: Fibromyalgia, Hypertension Additional Past Medical History / Comment(s): Aortic Aneurysm, Macular cyst status post surgery History of Any Multi-Drug Resistant Organisms: None Reported Past Surgical History: Appendectomy, Hysterectomy Additional Past Surgical History / Comment(s): Right bunionectomy, left eye macular cyst removal Past Anesthesia/Blood Transfusion Reactions: No Reported Reaction Past Psychological History: No Psychological Hx Reported Smoking Status: Never smoker Past Alcohol Use History: None Reported Past Drug Use History: None Reported - Past Family History Mother Additional Family Medical History / Comment(s): Mother at age 75 from hemorrhage or brain aneurysm with history of colon cancer status post colostomy. Father Additional Family Medical History / Comment(s): Father at age 69 with history of kidney stones. Sister(s) Additional Family Medical History / Comment(s): Patient has one sisterliving with history of CVA Brother(s) Additional Family Medical History / Comment(s): Patient has 2 brothers and one from pneumonia and one from TIA and strokes. General Exam Limitations: no limitations General appearance: alert, in no apparent distress, other (This is a well- developed, well-nourished elderly female patient in no acute distress. Vital signs upon presentation are temperature 98.2F, pulse 83, respirations 18, blood pressure 141/80, pulse ox 97% on room air.) Eye exam: Present: normal appearance, PERRL, EOMI. Absent: scleral icterus, conjunctival injection, periorbital swelling ENT exam: Present: normal exam, normal oropharynx, mucous membranes moist Respiratory exam: Present: normal lung sounds bilaterally. Absent: respiratory distress, wheezes, rales, rhonchi, stridor Cardiovascular Exam: Present: regular rate, normal rhythm, normal heart sounds. Absent: systolic murmur, diastolic murmur, rubs, gallop, clicks GI/Abdominal exam: Present: soft, normal bowel sounds. Absent: distended, tenderness, guarding, rebound, rigid Neurological exam: Present: alert, oriented X3, CN II-XII intact Psychiatric exam: Present: normal affect, normal mood Skin exam: Present: warm, dry, intact, normal color. Absent: rash Course Vital Signs 04/24/18 04/24/18 07:58 10:59 Temperature 98.2 F 98.2 F Pulse Rate 83 64 Respiratory 18 18 Rate Blood Pressure 141/80 125/66 O2 Sat by Pulse 97 97 Oximetry Medical Decision Making - Medical Decision Making 88-year-old female patient presented to the emergency department today for evaluation of diarrhea for the last 4-5 days. Physical examination is unremarkable. Abdomen is soft and nontender, mucous membranes are moist, patient appears well. Labs reviewed and did reveal a potassium of 3.1, this was replaced. Patient was afebrile, vital signs stable. Patient was given IV fluids. Upon reevaluation patient continues to do well. She is tolerating oral intake. We did discuss enteritis as a cause for her symptoms. She is instructed to increase fluids. She was given 1 dose of Imodium here in the department. She is instructed to follow-up with her primary care physician have repeat potassium level drawn in 1-2 days. Return parameters discussed in detail. She verbalizes understanding and agrees this plan. - Lab Data Result diagrams: 04/24/18 08:31 04/24/18 08:31 Lab Results 04/24/18 04/24/18 04/24/18 Range/Units 08:31 08:31 08:50 WBC 7.6 (3.8-10.6) k/uL RBC 4.58 (3.80-5.40) m/uL Hgb 13.9 (11.4-16.0) gm/dL Hct 41.0 (34.0-46.0) % MCV 89.5 (80.0-100.0) fL MCH 30.4 (25.0-35.0) pg MCHC 34.0 (31.0-37.0) g/dL RDW 13.4 (11.5-15.5) % Plt Count 190 (150-450) k/uL Neutrophils % 74 % Lymphocytes % 13 % Monocytes % 9 % Eosinophils % 2 % Basophils % 1 % Neutrophils # 5.6 (1.3-7.7) k/uL Lymphocytes # 1.0 (1.0-4.8) k/uL Monocytes # 0.7 (0-1.0) k/uL Eosinophils # 0.1 (0-0.7) k/uL Basophils # 0.1 (0-0.2) k/uL Sodium 139 (137-145) mmol/L Potassium 3.1 L (3.5-5.1) mmol/L Chloride 106 (98-107) mmol/L Carbon Dioxide 22 (22-30) mmol/L Anion Gap 11 mmol/L BUN 13 (7-17) mg/dL Creatinine 0.90 (0.52-1.04) mg/dL Est GFR (CKD-EPI)AfAm 67 (>60 ml/min/1.73 sqM) Est GFR (CKD-EPI)NonAf 58 (>60 ml/min/1.73 sqM) Glucose 109 H (74-99) mg/dL Calcium 9.6 (8.4-10.2) mg/dL Total Bilirubin 1.2 (0.2-1.3) mg/dL AST 22 (14-36) U/L ALT 26 (9-52) U/L Alkaline Phosphatase 73 (38-126) U/L Total Protein 7.4 (6.3-8.2) g/dL Albumin 4.2 (3.5-5.0) g/dL Amylase 79 (30-110) U/L Lipase 283 (23-300) U/L Urine Color Yellow Urine Appearance Cloudy H (Clear) Urine pH 5.5 (5.0-8.0) Ur Specific [place] 1.016 (1.001-1.035) Urine Protein 1+ H (Negative) Urine Glucose (UA) Negative (Negative) Urine Ketones 1+ H (Negative) Urine Blood Trace H (Negative) Urine Nitrite Negative (Negative) Urine Bilirubin Negative (Negative) Urine Urobilinogen 2.0 (<2.0) mg/dL Ur Leukocyte Esterase Negative (Negative) Urine RBC 2 (0-5) /hpf Urine WBC 10 H (0-5) /hpf Ur Squamous Epith Cells 2 (0-4) /hpf Amorphous Sediment Occasional H (None) /hpf Urine Bacteria Rare H (None) /hpf Hyaline Casts 29 H (0-2) /lpf Urine Mucus Many H (None) /hpf Disposition Clinical Impression: Enteritis Disposition: HOME SELF-CARE Condition: Good Instructions: Acute Diarrhea (ED) Additional Instructions: Increase fluids. Take medications as directed. Purchase [id number] Imodium and take as directed. If you develop constipation stopped taking the medication. Follow-up with your primary care physician for recheck in 1-2 days , have him recheck your potassium level. Return here immediately for any new, worsening, or concerning symptoms. Is patient prescribed a controlled substance at d/c from ED?: No Referrals: Rodrigo Krishnamurthy MD [Primary Care Provider] - 1-2 days Time of Disposition: 10:18
[2018-04-24 08:48] LABS: Basophils # (A) 0.1 k/uL (0-0.2); Basophils % (A) 1 %; Eosinophils # (A) 0.1 k/uL (0-0.7); Eosinophils % (A) 2 %; HGB 13.9 gm/dL (11.4-16.0); Lymphocytes % (A) 13 %; MCH 30.4 pg (25.0-35.0); MCV 89.5 fL (80.0-100.0); Mean Platelet Volume 7.9; Monocytes # (A) 0.7 k/uL (0-1.0); Monocytes % (A) 9 %; Neutrophils # (A) 5.6 k/uL (1.3-7.7); Neutrophils % (A) 74 %; Platelet Count 190 k/uL (150-450); RBC 4.58 m/uL (3.80-5.40); RDW 13.4 % (11.5-15.5); WBC 7.6 k/uL (3.8-10.6)
[2018-04-24 09:09] LABS: Albumin 4.2 g/dL (3.5-5.0); Calcium 9.6 mg/dL (8.4-10.2); Potassium 3.1 mmol/L (3.5-5.1); Total Bilirubin 1.2 mg/dL (0.2-1.3); Total Protein 7.4 g/dL (6.3-8.2)
[2018-04-24 09:26] LABS: Amorphous Sediment,Urine Occasional /hpf; Appearance,Urine Cloudy (Clear); Bacteria,Urine Rare /hpf; Bilirubin,Urine Negative (Negative); Blood,Urine Trace (Negative); Color,Urine Yellow; Glucose,Urine (UA) Negative (Negative); Hyaline Casts,Urine 29 /lpf (0-2); Ketones,Urine 1+ (Negative); Leukocyte Esterase,Urine Negative (Negative); Mucus,Urine Many /hpf; Nitrite,Urine Negative (Negative); PH, Urine 5.5 (5.0-8.0); Protein,Urine 1+ (Negative); RBC,Urine 2 /hpf (0-5); Specific Gravity,Urine 1.016 (1.001-1.035); Squamous Epithelial Cell,Urine 2 /hpf (0-4); WBC,Urine 10 /hpf (0-5)
[2018-04-24] MEDS ORDERED: LOPERAMIDE 2 MG CAP PO STA (09:51)
[2018-04-24] MEDS ORDERED: POTASSIUM CHLORIDE ER 20 MEQ TAB.ER PO STA (09:51)
[2018-04-24 11:02] VITALS: BP 125/66; PULSE 64
== END 2018-04-24 11:04 | disposition home or self-care (01) ==
LOC: EC 07:54
DX: K52.9 Noninfective gastroenteritis and colitis, unspecified (principal); I10 Essential (primary) hypertension; Z90.49 Acquired absence of other specified parts of digestive tract; Z90.710 Acquired absence of both cervix and uterus; Z79.899 Other long term (current) drug therapy; Z88.1 Allergy status to other antibiotic agents; Z88.5 Allergy status to narcotic agent; Z88.0 Allergy status to penicillin
CPT/HCPCS: 36415; 80053; 81001; 82150; 83690; 85025; 96360; 99284

== ENCOUNTER 2018-04-29 17:44 | Emergency (ER) | payer MEDICARE ==
[2018-04-29] MEDS ORDERED: SODIUM CHLORIDE 0.9% 500 ML IV STA (18:23)
[2018-04-29 18:43] LABS: Basophils # (A) 0.1 k/uL (0-0.2); Basophils % (A) 1 %; Eosinophils # (A) 0.1 k/uL (0-0.7); Eosinophils % (A) 1 %; HGB 12.1 gm/dL (11.4-16.0); Lymphocytes % (A) 11 %; MCH 29.4 pg (25.0-35.0); MCHC 31.9 g/dL (31.0-37.0); MCV 92.2 fL (80.0-100.0); Mean Platelet Volume 7.5; Monocytes # (A) 0.7 k/uL (0-1.0); Monocytes % (A) 7 %; Neutrophils # (A) 7.6 k/uL (1.3-7.7); Neutrophils % (A) 79 %; Platelet Count 206 k/uL (150-450); RBC 4.12 m/uL (3.80-5.40); RDW 13.2 % (11.5-15.5); WBC 9.6 k/uL (3.8-10.6)
[2018-04-29 18:52] LABS: INR 1.1 (<1.2); Partial Thromboplastin Time 25.1 sec (22.0-30.0); Prothrombin Time 10.7 sec (9.0-12.0)
--- NOTE | 2018-04-29 18:54 | ED ---
General Adult HPI - General Chief complaint: Nausea/Vomiting/Diarrhea Stated complaint: Diarrhea/fever Time Seen by Provider: 04/29/18 18:11 Source: family, RN notes reviewed, old records reviewed Mode of arrival: wheelchair Limitations: no limitations - History of Present Illness Initial comments: 88-year-old female presenting for evaluation of diarrhea. Patient has had diarrhea for the past 4-5 days. She had an episode where she was evaluated emergency department, she did discontinue her [place] after this visit and has had some persistent loose stool since that time. No watery diarrhea. Denies abdominal pain. She's had a low-grade temperature of 99-100 at home. Denies any chest pain. Denies cough or dyspnea. She does report some left ankle pain which she attributes to a minor trauma. This is associated with some swelling as well. Patient has been taking Imodium with some relief of her diarrhea. Due to her daughter she has had some confusion associated with this as well. This is not atypical for the patient. Denies any focal numbness or weakness. Denies headache. - Related Data Home Medications Medication Instructions Recorded Confirmed Hydrochlorothiazide [Hydrodiuril] 25 mg PO DAILY 02/29/16 04/29/18 Cholecalciferol [Vitamin D3] 1,000 unit PO DAILY 11/14/16 04/29/18 Folic Acid 0.4 mg PO DAILY 11/14/16 04/29/18 amLODIPine BESYLATE/BENAZEPRIL 1 cap PO DAILY 11/24/16 04/29/18 [Lotrel 5-20 mg Capsule] Loperamide [Imodium] 2 - 4 mg PO QID PRN 04/29/18 04/29/18 Allergies Allergy/AdvReac Type Severity Reaction Status Date / Time clindamycin Allergy Severe Anaphylaxis Verified 04/29/18 18:40 codeine AdvReac Unknown Verified 04/29/18 18:40 Penicillins AdvReac Unknown Verified 04/29/18 18:40 Review of Systems ROS Statement: Those systems with pertinent positive or pertinent negative responses have been documented in the HPI. ROS Other: All systems not noted in ROS Statement are negative. Past Medical History Past Medical History: Fibromyalgia, Hypertension Additional Past Medical History / Comment(s): Aortic Aneurysm, Macular cyst status post surgery History of Any Multi-Drug Resistant Organisms: None Reported Past Surgical History: Appendectomy, Hysterectomy Additional Past Surgical History / Comment(s): Right bunionectomy, left eye macular cyst removal Past Anesthesia/Blood Transfusion Reactions: No Reported Reaction Past Psychological History: No Psychological Hx Reported Smoking Status: Never smoker Past Alcohol Use History: None Reported Past Drug Use History: None Reported - Past Family History Mother Additional Family Medical History / Comment(s): Mother at age 75 from hemorrhage or brain aneurysm with history of colon cancer status post colostomy. Father Additional Family Medical History / Comment(s): Father at age 69 with history of kidney stones. Sister(s) Additional Family Medical History / Comment(s): Patient has one sisterliving with history of CVA Brother(s) Additional Family Medical History / Comment(s): Patient has 2 brothers and one from pneumonia and one from TIA and strokes. General Exam Limitations: no limitations General appearance: alert, in no apparent distress Head exam: Present: atraumatic, normocephalic Eye exam: Present: normal appearance, PERRL, EOMI ENT exam: Present: normal exam Neck exam: Present: normal inspection. Absent: tenderness, meningismus Respiratory exam: Present: normal lung sounds bilaterally. Absent: respiratory distress, wheezes Cardiovascular Exam: Present: regular rate, normal rhythm GI/Abdominal exam: Present: soft. Absent: distended, tenderness, guarding Extremities exam: Present: normal inspection, pedal edema (Trace pedal edematrace). Absent: normal capillary refill Neurological exam: Present: alert, oriented X3, CN II-XII intact. Absent: motor sensory deficit Psychiatric exam: Present: normal affect, normal mood Skin exam: Present: warm, dry, intact. Absent: cyanosis, diaphoretic Course Vital Signs 04/29/18 04/29/18 18:00 20:07 Temperature 99.2 F Pulse Rate 83 78 Respiratory 20 18 Rate Blood Pressure 115/75 130/75 O2 Sat by Pulse 99 97 Oximetry Medical Decision Making - Medical Decision Making 88 -year-old female presenting for evaluation of diarrhea. This is likely related to stopping her [place]. Patient is well-appearing with stable vitals. She does have some additional complaints of ankle pain with some soft tissue swelling. This is x-ray is negative for fracture. X-ray of the abdomen is negative for obstruction, colonic dilatation, or intraperitoneal free air. Chest x-ray negative for focal airspace disease. CBC within normal limits with a normal white blood cell count. Potassium 3.2 likely related to diarrhea. This is replaced in the emergency department. Urinalysis is negative. On reevaluation, patient is informed of test results, she is eager for discharge. Family is at bedside. She will return with worsening or changing symptoms. - Lab Data Result diagrams: 04/29/18 18:20 04/29/18 18:20 Lab Results 04/29/18 04/29/18 04/29/18 Range/Units 18:20 18:20 18:20 WBC 9.6 (3.8-10.6) k/uL RBC 4.12 (3.80-5.40) m/uL Hgb 12.1 (11.4-16.0) gm/dL Hct 38.0 (34.0-46.0) % MCV 92.2 (80.0-100.0) fL MCH 29.4 (25.0-35.0) pg MCHC 31.9 (31.0-37.0) g/dL RDW 13.2 (11.5-15.5) % Plt Count 206 (150-450) k/uL Neutrophils % 79 % Lymphocytes % 11 % Monocytes % 7 % Eosinophils % 1 % Basophils % 1 % Neutrophils # 7.6 (1.3-7.7) k/uL Lymphocytes # 1.0 (1.0-4.8) k/uL Monocytes # 0.7 (0-1.0) k/uL Eosinophils # 0.1 (0-0.7) k/uL Basophils # 0.1 (0-0.2) k/uL PT (9.0-12.0) sec INR (<1.2) APTT (22.0-30.0) sec Sodium 138 (137-145) mmol/L Potassium 3.2 L (3.5-5.1) mmol/L Chloride 101 (98-107) mmol/L Carbon Dioxide 25 (22-30) mmol/L Anion Gap 12 mmol/L BUN 8 (7-17) mg/dL Creatinine 0.90 (0.52-1.04) mg/dL Est GFR (CKD-EPI)AfAm 67 (>60 ml/min/1.73 sqM) Est GFR (CKD-EPI)NonAf 58 (>60 ml/min/1.73 sqM) Glucose 109 H (74-99) mg/dL Calcium 9.5 (8.4-10.2) mg/dL Total Bilirubin 0.7 (0.2-1.3) mg/dL AST 15 (14-36) U/L ALT 24 (9-52) U/L Alkaline Phosphatase 71 (38-126) U/L Troponin I (0.000-0.034) ng/mL NT-Pro-B Natriuret Pep 789 pg/mL Total Protein 7.1 (6.3-8.2) g/dL Albumin 4.0 (3.5-5.0) g/dL Lipase 50 (23-300) U/L Urine Color Urine Appearance (Clear) Urine pH (5.0-8.0) Ur Specific [place] (1.001-1.035) Urine Protein (Negative) Urine Glucose (UA) (Negative) Urine Ketones (Negative) Urine Blood (Negative) Urine Nitrite (Negative) Urine Bilirubin (Negative) Urine Urobilinogen (<2.0) mg/dL Ur Leukocyte Esterase (Negative) 04/29/18 04/29/18 04/29/18 Range/Units 18:20 18:20 19:00 WBC (3.8-10.6) k/uL RBC (3.80-5.40) m/uL Hgb (11.4-16.0) gm/dL Hct (34.0-46.0) % MCV (80.0-100.0) fL MCH (25.0-35.0) pg MCHC (31.0-37.0) g/dL RDW (11.5-15.5) % Plt Count (150-450) k/uL Neutrophils % % Lymphocytes % % Monocytes % % Eosinophils % % Basophils % % Neutrophils # (1.3-7.7) k/uL Lymphocytes # (1.0-4.8) k/uL Monocytes # (0-1.0) k/uL Eosinophils # (0-0.7) k/uL Basophils # (0-0.2) k/uL PT 10.7 (9.0-12.0) sec INR 1.1 (<1.2) APTT 25.1 (22.0-30.0) sec Sodium (137-145) mmol/L Potassium (3.5-5.1) mmol/L Chloride (98-107) mmol/L Carbon Dioxide (22-30) mmol/L Anion Gap mmol/L BUN (7-17) mg/dL Creatinine (0.52-1.04) mg/dL Est GFR (CKD-EPI)AfAm (>60 ml/min/1.73 sqM) Est GFR (CKD-EPI)NonAf (>60 ml/min/1.73 sqM) Glucose (74-99) mg/dL Calcium (8.4-10.2) mg/dL Total Bilirubin (0.2-1.3) mg/dL AST (14-36) U/L ALT (9-52) U/L Alkaline Phosphatase (38-126) U/L Troponin I 0.019 (0.000-0.034) ng/mL NT-Pro-B Natriuret Pep pg/mL Total Protein (6.3-8.2) g/dL Albumin (3.5-5.0) g/dL Lipase (23-300) U/L Urine Color Light Yellow Urine Appearance Clear (Clear) Urine pH 6.0 (5.0-8.0) Ur Specific [place] 1.003 (1.001-1.035) Urine Protein Negative (Negative) Urine Glucose (UA) Negative (Negative) Urine Ketones Negative (Negative) Urine Blood Negative (Negative) Urine Nitrite Negative (Negative) Urine Bilirubin Negative (Negative) Urine Urobilinogen <2.0 (<2.0) mg/dL Ur Leukocyte Esterase Negative (Negative) Disposition Clinical Impression: Dehydration, Diarrhea Disposition: HOME SELF-CARE Condition: Good Instructions: Acute Diarrhea (ED) Is patient prescribed a controlled substance at d/c from ED?: No Referrals: Rodrigo Krishnamurthy MD [Primary Care Provider] - 1-2 days Emilie Braxton MD [STAFF PHYSICIAN] - 1-2 days Walter Sosa MD [STAFF PHYSICIAN] - 1-2 days Time of Disposition: 20:51
[2018-04-29 19:02] LABS: Calcium 9.5 mg/dL (8.4-10.2); Potassium 3.2 mmol/L (3.5-5.1); Total Bilirubin 0.7 mg/dL (0.2-1.3); Total Protein 7.1 g/dL (6.3-8.2)
--- NOTE | 2018-04-29 19:29 | XR ---
EXAMINATION TYPE: XR chest 2V DATE OF EXAM: 04/29/2018 COMPARISON: NONE HISTORY: Fever TECHNIQUE: Frontal and lateral views of the chest are obtained. FINDINGS: There is no heart failure nor confluent pneumonic infiltrate. Costophrenic angles are werner r. Thoracic aorta is atheromatous. There is osteopenia. IMPRESSION: No active cardiopulmonary disease. Atheromatous aorta.
--- NOTE | 2018-04-29 19:30 | XR ---
EXAMINATION TYPE: XR KUB DATE OF EXAM: 04/29/2018 COMPARISON: 12/03/2011 HISTORY: Diarrhea TECHNIQUE: Single view FINDINGS: Upright view shows no sign of intestinal obstruction or pneumoperitoneum. Fecal pattern is normal. There are no pathologic calcifications. IMPRESSION: Nonacute abdomen. No change.
--- NOTE | 2018-04-29 19:31 | XR ---
EXAMINATION TYPE: XR ankle complete LT DATE OF EXAM: 04/29/2018 COMPARISON: NONE HISTORY: Ankle swelling TECHNIQUE: 3 views FINDINGS: Ankle mortise is anatomic. I see no fracture nor dislocation. There is spurring at the talo navicular joint. IMPRESSION: No acute abnormality of the left ankle. Mild soft tissue swelling.
[2018-04-29 19:39] LABS: Appearance,Urine Clear (Clear); Bilirubin,Urine Negative (Negative); Blood,Urine Negative (Negative); Color,Urine Light Yellow; Glucose,Urine (UA) Negative (Negative); Ketones,Urine Negative (Negative); Leukocyte Esterase,Urine Negative (Negative); Nitrite,Urine Negative (Negative); Protein,Urine Negative (Negative); Specific Gravity,Urine 1.003 (1.001-1.035); Urobilinogen,Urine <2.0 mg/dL (<2.0)
[2018-04-29] MEDS: POTASSIUM CHLORIDE ER 20 MEQ TAB.ER PO STA ×2 (20:05→20:45)
[2018-04-29 20:08] VITALS: RESP 18
[2018-04-29] MEDS ORDERED: POTASSIUM BICARBONATE/CIT AC 20 MEQ TABLET.EFF PO ONE (20:09)
[2018-04-29 21:13] VITALS: BP 151/73; PULSE 82; TEMP 97.9
== END 2018-04-29 21:12 | disposition home or self-care (01) ==
LOC: EC 17:44
DX: E86.0 Dehydration (principal); R19.7 Diarrhea, unspecified; M25.472 Effusion, left ankle; M25.572 Pain in left ankle and joints of left foot; I10 Essential (primary) hypertension; Z79.899 Other long term (current) drug therapy; Z88.0 Allergy status to penicillin; Z88.1 Allergy status to other antibiotic agents; Z88.5 Allergy status to narcotic agent
CPT/HCPCS: 36415; 71046; 74018; 80053; 81003; 83690; 83880; 84484; 85025; 85610; 85730; 99284